=== PATIENT | female | born 2000 | race Caucasian/White ===

== ENCOUNTER 2022-01-30 18:40 | Emergency (ER) | payer OTHER ==
[~2022-01-30] VITALS: Ht 165.1 cm; Wt 63.9 kg
[2022-01-30] MEDS ORDERED: IBUP1TAB6 PO (18:52)
[2022-01-30] MEDS ORDERED: LIDO2SOL17 PO (18:52)
[2022-01-30] MEDS ORDERED: dexameTHASONE 20MG/5ML VIAL (J1100 PER 1MG) IV ONE (19:30)
[2022-01-30] MEDS ORDERED: KETOROLAC 30 MG/ML 1ML VIAL IV ONE (19:30)
[2022-01-30 20:14] LABS: BASO # 0.1 10^3/uL (0.0-0.2); BASO % 0.7 % (0.0-1.0); EOS # 0.2 10^3/uL (0.0-0.5); EOS % 2.8 % (0.0-3.0); HEMATOCRIT 35.6 % (36.0-47.0); LYMPH # 2.5 10^3/uL (1.5-5.0); LYMPH % 32.8 % (24.0-44.0); MEAN CORPUSCULAR HEMOGLOBIN 32.4 pg (27.0-33.0); MEAN CORPUSCULAR HGB CONC 33.7 g/dl (32.0-36.5); MEAN CORPUSCULAR VOLUME 96.2 fl (80.0-96.0); MONO # 0.7 10^3/uL (0.0-0.8); MONO % 9.6 % (2.0-8.0); NEUTROPHILS # 4.1 10^3/uL (1.5-8.5); PLATELET COUNT, AUTOMATED 185 10^3/uL (150-450); WHITE BLOOD COUNT 7.5 10^3/uL (4.0-10.0)
[2022-01-30 20:38] LABS: MONO SCRN NEGATIVE (NEGATIVE)
[2022-01-30] MEDS ORDERED: cefTRIAXone SOD 1 GM in D5W MINI-BAG PLUS 50 ML IV ONE (22:00)
[2022-01-30] MEDS ORDERED: PRED20TA PO (22:04)
[2022-01-30 22:13] VITALS: BP 117/60
== END 2022-01-30 22:36 | disposition home or self-care (01) ==
LOC: M ED 18:40
DX: J02.9 Acute pharyngitis, unspecified (principal)
CPT/HCPCS: 80047; 85025; 86308; 87486; 87581; 87633; 87798; 87880; 96365; 96375; 99283; J0696; J1100; J1885

== ENCOUNTER 2022-03-11 13:10 | Emergency (ER) | payer OTHER ==
[~2022-03-11] VITALS: Ht 165.1 cm; Wt 62.2 kg
[~2022-03-11 13:10] MED LIST: IBUP1TAB6 PO; LIDO2SOL17 PO; PRED20TA PO
[2022-03-11 14:37] LABS: RSV AMPLIFICATION NEGATIVE (NEGATIVE)
[2022-03-11 15:15] VITALS: BP 120/70
== END 2022-03-11 15:21 | disposition home or self-care (01) ==
LOC: M ED 13:10
DX: J02.9 Acute pharyngitis, unspecified (principal); R50.9 Fever, unspecified; M79.10 Myalgia, unspecified site